=== PATIENT | male | born 1985 | race Caucasian/White ===

== ENCOUNTER 2019-11-02 17:57 | Emergency (ER) | payer OTHER, SELFPAY ==
[2019-11-02 18:11] VITALS: BP 118/71; PULSE 62; RESP 16; TEMP 36.4; O2SAT 100; BMI 27.3
--- NOTE | 2019-11-02 18:41 | DI.US.S_ITS ---
PROCEDURE: US ABDOMEN LIMITED INDICATIONS: RIGHT UPPER QUADRANT PAIN TECHNIQUE: Real-time scanning was performed of the abdominal and retroperitoneal organs, with image documentation. COMPARISON: None. FINDINGS: Liver: Liver is normal in size and homogeneous in echotexture. Gallbladder: Nondilated. No stones or sludge. Normal gallbladder wall thickness. No pericholecystic fluid. Right upper artery tenderness. Biliary ducts: Intrahepatic bile ducts are non-dilated. Extrahepatic bile duct caliber measures 3 mm. Normal is 6-7 mm or less in diameter, or 10 mm or less post-cholecystectomy. Pancreas: Visualized portions of the pancreas are sonographically normal. Spleen: Spleen is normal in size and homogeneous in echotexture. Kidneys: No right kidney hydronephrosis. Left kidney not evaluated. IMPRESSION: No imaging findings to suggest acute cholecystitis. No gallstones. Right upper quadrant tenderness during the exam. Dictated by: Juan Carlos Fairbanks M.D. on 11/02/2019 at 19:51 Approved by: Juan Carlos Fairbanks M.D. on 11/02/2019 at 19:53
--- NOTE | 2019-11-02 19:01 | ED_ITS ---
HPI - Abdominal Pain <ADRI Obrien - Last Filed: 11/02/19 21:22> General Chief Complaint: Abdominal Pain Stated Complaint: ABD PAIN DIZZY Time Seen by Provider: 11/02/19 18:21 Source: patient Mode of arrival: Ambulatory Limitations: no limitations History of Present Illness HPI narrative: 34-year-old male presents emergency department complaining of right upper quadrant pain x 2+ weeks. He was originally seen in urgent care in [place] and was directed to the ED for further evaluation of his gallbladder. He states this pain has been intermittent but worsening over the past 2 weeks. Patient reports a cramping dull aching pain that occurs about an hour after he eats. He feels lightheaded when the pain occurs, pain usually resolves after a few hours after eating. He has tried eating different foods and reports that this happens with everything that he eats. He denies any recent abdominal surgeries. He reports intermittently associated nausea. Patient denies chest pain, shortness of breath, diarrhea, constipation, fevers, chills, cough, or other concerns. Related Data Previous Rx's Medication Instructions Recorded ondansetron 4 mg PO Q6H PRN #14 tab 11/02/19 Allergies Allergy/AdvReac Type Severity Reaction Status Date / Time No Known Drug Allergies Allergy Verified 11/02/19 18:11 Review of Systems <ADRI Obrien - Last Filed: 11/02/19 21:22> Review of Systems Narrative: REVIEW OF SYSTEMS: GENERAL: Denies fever, chills, malaise, or wt. loss. HENT: No head trauma, sore throat, or dysphagia. EYES: No loss of vision, double vision, eye pain, or irritation. CARDIOVASCULAR: No chest pain, palpitations, or orthopnea. RESPIRATORY: No shortness of breath or cough. GASTROINTESTINAL: Complains of right upper quadrant abdominal pain, see HPI GENITOURINARY: No flank pain, urinary incontinence, hesitancy, frequency, or dysuria. MUSCULOSKELETAL: No pain, weakness, or trauma. INTEGUMENTARY: No rash, lesions, or pruritus. NEURO: No numbness, tingling, memory loss, confusion, or headaches. PSYCH: No behavior or mood changes. Patient History <ADRI Obrien - Last Filed: 12/30/19 21:22> Social History Smoking Status: Never smoker Smoking Status: Never smoker alcohol intake frequency: a few times a week Substance Use Type: does not use Exam <ADRI Obrien - Last Filed: 11/02/19 21:22> Initial Vital Signs Initial Vital Signs: Vital Signs Temperature 97.6 F 11/02/19 18:11 Pulse Rate 62 11/02/19 18:11 Respiratory Rate 16 11/02/19 18:11 Blood Pressure 118/71 11/02/19 18:11 Pulse Oximetry 100 11/02/19 18:11 PHYSICAL EXAMINATION: GENERAL: Well groomed, alert, and cooperative. Answers questions promptly and appropriately. Vital signs noted. HENT: Normocephalic, atraumatic. Hearing intact. Oral mucosa is pink and moist. EYES: Conjunctiva pink, sclera white, no periorbital swelling. CARDIOVASCULAR: S1 and S2 sounds normal. Regular rate and rhythm, no murmurs, clicks, or bruits. No pedal edema. RESPIRATORY: Normal respiratory rate, trachea midline, airway patent. No stridor, nasal flaring or accessory muscle use. Lungs are clear in all fabian without wheeze, rhonchi, or crackles. GASTROINTESTINAL: Bowel sounds normoactive. Mild right upper quadrant tenderness, no tenderness to right lower quadrant,left upper quadrant, or left lower quadrant No organomegaly, no palpable masses. GENITALURINARY: No flank tenderness. MUSCULOSKELETAL: Normal gait and coordination. Equal tone and mass bilaterally. EXTREMITIES: CMS intact, no pedal edema. SKIN: Warm, dry, soft, appropriate color for ethnicity. No lesions, rashes, or wounds. NEURO: Alert and Oriented X 3. Good coordination. No ataxia, or sensory deficits, or cognitive issues. PSYCH: Appropriate affect and mood. <Rey Swenson DO - Last Filed: 11/03/19 07:07> Initial Vital Signs Initial Vital Signs: Vital Signs Temperature 97.6 F 11/02/19 18:11 Pulse Rate 62 11/02/19 18:11 Respiratory Rate 16 11/02/19 18:11 Blood Pressure 118/71 11/02/19 18:11 Pulse Oximetry 100 11/02/19 18:11 Course <ADRI Obrien - Last Filed: 11/02/19 21:22> Course Course Narrative: Patient remained pain free throughout the emergency department stay, he was given fluids. Orders Ordered: Discontinued Medications Sodium Chloride (Normal Saline 0.9%) 1,000 mls @ 1,000 mls/hr IV BOLUS ONE Stop: 11/02/19 19:39 Last Admin: 11/02/19 19:17 Dose: Not Given Documented by: BRADEN Vital Signs Vital signs: Vital Signs - 8 hr 11/02/19 18:11 11/02/19 19:15 11/02/19 20:00 Temperature 97.6 F Pulse Rate 62 64 64 Respiratory Rate 16 17 17 Blood Pressure 118/71 Blood Pressure [Left Arm] 115/68 124/64 Pulse Oximetry 100 100 97 <Rey Swenson DO - Last Filed: 11/03/19 07:07> Orders Ordered: Discontinued Medications Sodium Chloride (Normal Saline 0.9%) 1,000 mls @ 1,000 mls/hr IV BOLUS ONE Stop: 11/02/19 19:39 Last Admin: 11/02/19 19:17 Dose: Not Given Documented by: BRADEN Vital Signs Vital signs: Vital Signs - 8 hr 11/02/19 18:11 11/02/19 19:15 11/02/19 20:00 Temperature 97.6 F Pulse Rate 62 64 64 Respiratory Rate 16 17 17 Blood Pressure 118/71 Blood Pressure [Left Arm] 115/68 124/64 Pulse Oximetry 100 100 97 MDM - Abdominal Pain <ADRI Obrien - Last Filed: 11/02/19 21:22> Medical Records Attestation: I reviewed the patient's medical records. Lab Data Attestation: I reviewed the patient's lab results. Result diagrams: 11/02/19 19:31 11/02/19 19:31 Labs: Lab Results 11/02/19 11/02/19 11/02/19 Range/Units 19:31 19:31 19:31 WBC 13.1 H (4.5-11.0) X10^3/uL RBC 5.15 (4.5-5.9) X10^6/uL Hgb 15.6 (13.5-17.5) g/dL Hct 44.5 (41-53) % MCV 86.3 (80-100) fL MCH 30.2 (26-34) PG MCHC 35.0 (30-36) % RDW 13.0 (11.6-14.8) % Plt Count 220 (150-400) X10^3/uL Neut % (Auto) 77.8 H (50-75) % Lymph % (Auto) 13.7 L (25-40) % [place] % (Auto) 6.4 (3-14) % Eos % (Auto) 1.1 L (2-4) % Baso % (Auto) 1.0 (0-2) % Neut # (Auto) 00763 H (5886-0993) /uL Lymph # (Auto) 1800 (1887-0737) /uL [place] # (Auto) 800 (0-900) /uL Eos # (Auto) 100 (0-450) /uL Baso # (Auto) 100 (0-100) /uL PT 12.2 (10.1-12.7) SECONDS INR 1.1 (0.9-1.3) APTT 36 (26.4-36.2) SECONDS Sodium 140 (137-145) mmol/L Potassium 4.2 (3.4-5.1) mmol/L Chloride 101 (98-107) mmol/L Carbon Dioxide 29 (22-32) mmol/L BUN 15 (9-20) mg/dL Creatinine 1.00 (0.66-1.25) mg/dL Estimated GFR > 60.0 (>60) mL/min BUN/Creatinine Ratio 15.0 (6-22) Glucose 97 (70-100) mg/dL Calcium 9.7 (8.4-10.2) mg/dL Total Bilirubin 0.6 (0.2-1.3) mg/dL AST 28 (17-59) IU/L ALT 26 (<50) IU/L Alkaline Phosphatase 83 (38-126) U/L Total Protein 7.8 (6.3-8.2) g/dL Albumin 4.8 (3.5-5.0) g/dL Globulin 3.0 (1.7-4.1) g/dL Albumin/Globulin Ratio 1.6 (1.0-2.8) Lipase 141 (23-300) U/L Point of care testing: Urine Dip Bedside Urine Glucose Negative Bedside Urine Bilirubin - Negative Bedside Urine Ketone - Negative Urine Specific [place] 1.010 Bedside Urine Occult Blood - Negative Bedside Urine pH 6.0 Bedside Urine Protein - Negative Bedside Urine Urobilinogen - Negative Bedside Urine Nitrite - Negative Bedside Urine Leukocytes - Negative Esterase Imaging Data US - abdomen: Radiologist's Impression: [address] [address] Ultrasound Report Signed Patient: Sherman Schroeder WMR#: [id number] : 1985Acct:[id number] Age/Sex: 34 / MDate of Service: 11/02/19 Loc: ED Accession Number: [id number] Procedure: US abdomen limited Ordering Provider: Rey Swenson D.O. PROCEDURE: US ABDOMEN LIMITED INDICATIONS: RIGHT UPPER QUADRANT PAIN TECHNIQUE: Real-time scanning was performed of the abdominal and retroperitoneal organs, with image documentation. COMPARISON: None. FINDINGS: Liver: Liver is normal in size and homogeneous in echotexture. Gallbladder: Nondilated. No stones or sludge. Normal gallbladder wall thickness. No pericholecystic fluid. Right upper artery tenderness. Biliary ducts: Intrahepatic bile ducts are non-dilated. Extrahepatic bile duct caliber measures 3 mm. Normal is 6-7 mm or less in diameter, or 10 mm or less post-cholecystectomy. Pancreas: Visualized portions of the pancreas are sonographically normal. Spleen: Spleen is normal in size and homogeneous in echotexture. Kidneys: No right kidney hydronephrosis. Left kidney not evaluated. IMPRESSION: No imaging findings to suggest acute cholecystitis. No gallstones. Right upper quadrant tenderness during the exam. Dictated by: Juan Carlos Fairbanks M.D. on 11/02/2019 at 19:51 Approved by: Juan Carlos Fairbanks M.D. on 11/02/2019 at 19:53 [facility] Narrative Medical decision making narrative: 34-year-old male presents emergency department with right upper quadrant pain sent from the walk-in clinic for evaluation of his gallbladder. Ultrasound was negative for any sludge or stones, chemistries were within normal limits. Patient did exhibit a white count of 13.1 but did not have fevers or tachycardia or other signs of sepsis. Differential includes functional gallbladder disease (most likely due to worsening symptoms after consuming food) , gastroenteritis (slightly elevated WBC with the GI complaint), food allergies, and/or IBS. Patient was encouraged to follow up with his primary care provider in the next few weeks for re- evaluation and further testing if indicated. He was counseled extensively to return emergency department for new or worsening symptoms such as severe abdominal pain, high fevers, uncontrollable vomiting, or other concerns. Patient was prescribed ondansetron help relieve symptoms the next time he consumes food. Patient did not appear acutely ill, he remained hemodynamically stable throughout the emergency department stay, and reports the symptoms have not worsened over the course of 2 weeks. <Rey Swenson DO - Last Filed: 11/03/19 07:07> Lab Data Labs: Lab Results 11/02/19 11/02/19 11/02/19 Range/Units 19:31 19:31 19:31 WBC 13.1 H (4.5-11.0) X10^3/uL RBC 5.15 (4.5-5.9) X10^6/uL Hgb 15.6 (13.5-17.5) g/dL Hct 44.5 (41-53) % MCV 86.3 (80-100) fL MCH 30.2 (26-34) PG MCHC 35.0 (30-36) % RDW 13.0 (11.6-14.8) % Plt Count 220 (150-400) X10^3/uL Neut % (Auto) 77.8 H (50-75) % Lymph % (Auto) 13.7 L (25-40) % [place] % (Auto) 6.4 (3-14) % Eos % (Auto) 1.1 L (2-4) % Baso % (Auto) 1.0 (0-2) % Neut # (Auto) 80280 H (8460-5767) /uL Lymph # (Auto) 1800 (1941-9588) /uL [place] # (Auto) 800 (0-900) /uL Eos # (Auto) 100 (0-450) /uL Baso # (Auto) 100 (0-100) /uL PT 12.2 (10.1-12.7) SECONDS INR 1.1 (0.9-1.3) APTT 36 (26.4-36.2) SECONDS Sodium 140 (137-145) mmol/L Potassium 4.2 (3.4-5.1) mmol/L Chloride 101 (98-107) mmol/L Carbon Dioxide 29 (22-32) mmol/L BUN 15 (9-20) mg/dL Creatinine 1.00 (0.66-1.25) mg/dL Estimated GFR > 60.0 (>60) mL/min BUN/Creatinine Ratio 15.0 (6-22) Glucose 97 (70-100) mg/dL Calcium 9.7 (8.4-10.2) mg/dL Total Bilirubin 0.6 (0.2-1.3) mg/dL AST 28 (17-59) IU/L ALT 26 (<50) IU/L Alkaline Phosphatase 83 (38-126) U/L Total Protein 7.8 (6.3-8.2) g/dL Albumin 4.8 (3.5-5.0) g/dL Globulin 3.0 (1.7-4.1) g/dL Albumin/Globulin Ratio 1.6 (1.0-2.8) Lipase 141 (23-300) U/L Point of care testing: Urine Dip Bedside Urine Glucose Negative Bedside Urine Bilirubin - Negative Bedside Urine Ketone - Negative Urine Specific [place] 1.010 Bedside Urine Occult Blood - Negative Bedside Urine pH 6.0 Bedside Urine Protein - Negative Bedside Urine Urobilinogen - Negative Bedside Urine Nitrite - Negative Bedside Urine Leukocytes - Negative Esterase Discharge Plan Departure Patient Disposition: Home Clinical Impression: Abdominal pain Qualifiers: Abdominal location: right upper quadrant Qualified Code(s): R10.11 - Right upper quadrant pain Discharge Date/Time: 11/02/19 20:58 Instructions: DI for Abdominal Pain-Adult Activity Restrictions/Additional Instructions: Thank you for entrusting me with your care today. As discussed, your ultrasound is negative for any gallstones or sludge. Your labs are non-remarkable. It is unclear the exact cause of your abdominal pain. Suggest following up with her primary care provider in 1-2 weeks for re-evaluation. I prescribed you nausea medication in case these episodes occur again. Return emergency department for new or worsening symptoms such as chest pain, high fevers, shortness of breath, severe abdominal pain, or other concerns. Prescriptions: New ondansetron 4 mg tablet,disintegrating 4 mg PO Q6H PRN (Reason: nausea and vomiting) Qty: 14 RF: 0
[2019-11-02 19:15] VITALS: BP 115/68; PULSE 64; RESP 17; O2SAT 100
[2019-11-02 19:37] LABS: Add Manual Diff / Slide Review NO; Basophils Absolute Auto 100 /uL (0-100); Eosinophils Absolute Auto 100 /uL (0-450); Eosinophils Percent Auto 1.1 % (2-4); Hematocrit 44.5 % (41-53); Hemoglobin 15.6 g/dL (13.5-17.5); Lymphocytes Absolute Auto 1800 /uL (1100-4500); Lymphocytes Percent Auto 13.7 % (25-40); Mean Corpuscular Hemoglobin 30.2 PG (26-34); Mean Corpuscular Volume 86.3 fL (80-100); Monocytes Absolute Auto 800 /uL (0-900); Monocytes Percent Auto 6.4 % (3-14); Neutrophils Absolute Auto 10200 /uL (1500-7000); Neutrophils Percent Auto 77.8 % (50-75); Platelet Count 220 X10^3/uL (150-400); Red Blood Cell Count 5.15 X10^6/uL (4.5-5.9); White Blood Cell Count 13.1 X10^3/uL (4.5-11.0)
[2019-11-02 19:44] LABS: INR 1.1 (0.9-1.3); Prothrombin Time 12.2 SECONDS (10.1-12.7)
[2019-11-02 19:47] LABS: PTT Partial Thromboplastin Tim 36 SECONDS (26.4-36.2)
[2019-11-02 19:48] LABS: Alanine Aminotransferase 26 IU/L (<50); Albumin 4.8 g/dL (3.5-5.0); Albumin Globulin Ratio 1.6 (1.0-2.8); Alkaline Phosphatase 83 U/L (38-126); Aspartate Aminotransferase 28 IU/L (17-59); Bilirubin Total 0.6 mg/dL (0.2-1.3); Blood Urea Nitrogen 15 mg/dL (9-20); Calcium 9.7 mg/dL (8.4-10.2); Carbon Dioxide 29 mmol/L (22-32); Chloride 101 mmol/L (98-107); Estimated Glomerular Filt Rate > 60.0 mL/min (>60); Glucose 97 mg/dL (70-100); HEMOLYSIS < 15 (0-50); Lipase 141 U/L (23-300); Potassium 4.2 mmol/L (3.4-5.1); Sodium 140 mmol/L (137-145); Total Protein 7.8 g/dL (6.3-8.2)
[2019-11-02 20:00] VITALS: BP 124/64; PULSE 64; RESP 17; O2SAT 97
== END 2019-11-02 20:58 | disposition home or self-care (01) ==
PROVIDERS: Emergency Medicine; Emergency Provider Nurse Practitioner
DX: R10.11 Right upper quadrant pain (principal); R42 Dizziness and giddiness
CPT/HCPCS: 36415; 76705; 80053; 81003; 83690; 85025; 85610; 85730; 99284

== ENCOUNTER → 2020-05-13 09:57 | Outpatient (CLI) | payer OTHER, SELFPAY ==
[2020-05-13 10:47] LABS: Add Manual Diff / Slide Review NO; Basophils Absolute Auto 0 /uL (0-100); Basophils Percent Auto 0.5 % (0-2); Eosinophils Absolute Auto 200 /uL (0-450); Eosinophils Percent Auto 2.9 % (2-4); Hematocrit 44.1 % (41-53); Lymphocytes Absolute Auto 1900 /uL (1100-4500); Lymphocytes Percent Auto 27.1 % (25-40); Mean Corpuscular HGB Conc 34.1 % (30-36); Mean Corpuscular Hemoglobin 29.5 PG (26-34); Mean Corpuscular Volume 86.5 fL (80-100); Monocytes Absolute Auto 600 /uL (0-900); Monocytes Percent Auto 8.5 % (3-14); Neutrophils Absolute Auto 4200 /uL (1500-7000); Platelet Count 187 X10^3/uL (150-400); Red Cell Distribution Width 13.3 % (11.6-14.8); White Blood Cell Count 6.9 X10^3/uL (4.5-11.0)
[2020-05-13 11:03] LABS: Alanine Aminotransferase 32 IU/L (<50); Albumin 4.5 g/dL (3.5-5.0); Albumin Globulin Ratio 1.7 (1.0-2.8); Alkaline Phosphatase 86 U/L (38-126); Aspartate Aminotransferase 27 IU/L (17-59); BUN Creatinine Ratio 16.9 (6-22); Bilirubin Total 1.1 mg/dL (0.2-1.3); Blood Urea Nitrogen 15 mg/dL (9-20); C-Reactive Protein Quant < 0.5 mg/dL (<1.0); Calcium 9.8 mg/dL (8.4-10.2); Carbon Dioxide 30 mmol/L (22-32); Chloride 104 mmol/L (98-107); Cholesterol 144 mg/dL (140-199); Estimated Glomerular Filt Rate > 60.0 mL/min (>60); Globulin 2.6 g/dL (1.7-4.1); Glucose 93 mg/dL (70-100); HDL Cholesterol 41 mg/dL (40-60); HEMOLYSIS < 15 (0-50); LDL Cholesterol Calculated 92 mg/dL (<100); Lipase 59 U/L (23-300); Potassium 4.4 mmol/L (3.4-5.1); Sodium 138 mmol/L (137-145); Total Protein 7.1 g/dL (6.3-8.2); Triglycerides 56 mg/dL (35-150)
[2020-05-13 11:08] LABS: Erythrocyte Sedimentation Rate 2 MM/HR (0-15)
== END ==
PROVIDERS: PCP Internal Medicine; Referring Provider Internal Medicine; Visit Provider Internal Medicine
DX: E78.5 Hyperlipidemia, unspecified (principal); R19.5 Other fecal abnormalities
CPT/HCPCS: 36415; 80053; 80061; 83690; 85025; 85651; 86140

== ENCOUNTER → 2021-07-06 14:27 | Outpatient (CLI) | payer OTHER, SELFPAY ==
[2021-07-06 16:12] LABS: Add Manual Diff / Slide Review NO; Basophils Absolute Auto 0 /uL (0-100); Basophils Percent Auto 0.3 % (0-2); Eosinophils Absolute Auto 200 /uL (0-450); Eosinophils Percent Auto 2.4 % (2-4); Hemoglobin 15.7 g/dL (13.5-17.5); Lymphocytes Absolute Auto 2200 /uL (1100-4500); Lymphocytes Percent Auto 29.9 % (25-40); Mean Corpuscular Hemoglobin 30.2 PG (26-34); Mean Corpuscular Volume 86.2 fL (80-100); Monocytes Absolute Auto 700 /uL (0-900); Neutrophils Absolute Auto 4300 /uL (1500-7000); Neutrophils Percent Auto 57.4 % (50-75); Platelet Count 208 X10^3/uL (150-400); Red Blood Cell Count 5.22 X10^6/uL (4.5-5.9); Red Cell Distribution Width 13.5 % (11.6-14.8); White Blood Cell Count 7.4 X10^3/uL (4.5-11.0)
[2021-07-06 16:25] LABS: Alanine Aminotransferase 29 IU/L (<50); Albumin 4.9 g/dL (3.5-5.0); Albumin Globulin Ratio 1.6 (1.0-2.8); Alkaline Phosphatase 75 U/L (38-126); Aspartate Aminotransferase 29 IU/L (17-59); BUN Creatinine Ratio 17.7 (6-22); Bilirubin Total 0.8 mg/dL (0.2-1.3); Blood Urea Nitrogen 17 mg/dL (9-20); Calcium 9.7 mg/dL (8.4-10.2); Carbon Dioxide 29 mmol/L (22-32); Chloride 103 mmol/L (98-107); Estimated Glomerular Filt Rate > 60.0 mL/min (>60); Glucose 82 mg/dL (70-100); HEMOLYSIS < 15 (0-50); Lipase 82 U/L (23-300); Potassium 4.1 mmol/L (3.4-5.1); Sodium 140 mmol/L (137-145); Total Protein 7.9 g/dL (6.3-8.2)
== END ==
PROVIDERS: PCP Internal Medicine; Referring Provider Internal Medicine; Visit Provider Internal Medicine
DX: R10.11 Right upper quadrant pain (principal)
CPT/HCPCS: 36415; 80053; 83690; 85025